=== PATIENT | male | born 1960 | race Caucasian/White ===

== ENCOUNTER 2018-07-06 19:42 | Observation (INO) | payer OTHER ==
[2018-07-06 23:24] LABS: ADD MAN DIFF? NO
[2018-07-06 23:28] LABS: WHITE BLOOD COUNT 8.5 10^3/ul (4.8-10.8)
[2018-07-06 23:28] LABS: BASOPHIL # 0.1 10^3/ul (0.0-0.1); BASOPHILS % 0.8 % (0.0-2.0); EOSINOPHILS # 0.2 10^3/ul (0.0-0.5); EOSINOPHILS % 2.6 % (0.0-7.0); HEMATOCRIT 34.8 % (42.0-52.0); HEMOGLOBIN 11.1 g/dl (14.0-18.0); LYMPHOCYTES # 1.6 10^3/ul (0.8-2.9); LYMPHOCYTES % 19.1 % (15.0-51.0); MEAN CORPUSCULAR HEMOGLOBIN 25.7 pg (29.0-33.0); MEAN CORPUSCULAR HGB CONC 31.9 g/dl (32.0-37.0); MEAN CORPUSCULAR VOLUME 80.6 fl (82.0-101.0); MEAN PLATELET VOLUME 10.2 fl (7.4-10.4); MONOCYTE # 0.4 10^3/ul (0.3-0.9); MONOCYTES % 4.1 % (0.0-11.0); NEUTROPHIL # 6.2 10^3/ul (1.6-7.5); NEUTROPHILS % 73.2 % (39.0-77.0); PLATELET COUNT 278 10^3/UL (140-415); RED BLOOD COUNT 4.32 10^6/ul (4.70-6.10)
[2018-07-06 23:49] LABS: ALANINE AMINOTRANSFERASE 12 IU/L (13-69); ALBUMIN 4.5 g/dl (3.3-4.9); ALBUMIN/GLOBULIN RATIO 1.07; ALKALINE PHOSPHATASE 56 IU/L (42-121); ANION GAP 16 (5-13); ASPARTATE AMINO TRANSFERASE 36 IU/L (15-46); BLOOD UREA NITROGEN 36 mg/dl (7-20); CARBON DIOXIDE 27 mmol/L (21-31); CHLORIDE 93 mmol/L (97-110); CREATININE 1.41 mg/dl (0.61-1.24); Estimated GFR 52 mL/min (>60); GLUCOSE 91 mg/dl (70-220); LIPASE 130 U/L (23-300); POTASSIUM 4.7 mmol/L (3.5-5.1); SODIUM 136 mmol/L (135-144); TOTAL PROTEIN 8.7 g/dl (6.1-8.1)
[2018-07-07] LABS: B-TYPE NATRIURETIC PEPTIDE 136 PG/ML (0-125); TROPONIN-I < 0.012 ng/ml (0.000-0.120)
[2018-07-07] MEDS ORDERED: NACL 0.9% 3 ML SYG IV (02:00)
[2018-07-07] MEDS ORDERED: ACETAMINOPHEN 325 MG TAB PO (02:00)
[2018-07-07] MEDS ORDERED: BISACODYL (EC) 5 MG TAB PO (02:00)
[2018-07-07] MEDS ORDERED: DOCUSATE SODIUM 100 MG CAP PO (02:00)
[2018-07-07] MEDS: morphine 2 MG INJ IV (02:09)
[2018-07-07] MEDS: AMLODIPINE 2.5 MG TAB PO (02:13)
[2018-07-07] MEDS: ASPIRIN 325 MG TAB PO (03:08)
[2018-07-07] MEDS: NITROGLYCERIN (SL) 0.4 MG TAB SL ×2 (03:11→05:40)
[2018-07-07] MEDS: ENOXAPARIN 100 MG/ML SYG SC (03:54)
[2018-07-07 05:22] LABS: HEMOGLOBIN A1C 5.4 % (0-5.9)
[2018-07-07] MEDS: morphine LIQ (10 MG/5 ML) CUP PO ×2 (06:39→10:05)
[2018-07-07] MEDS: SOD CHLORIDE 0.9% 500 ML IV (07:00)
[2018-07-07 07:43] LABS: ETHANOL < 10.0 mg/dl (0-0)
[2018-07-07 07:44] LABS: CHOLESTEROL 255 mg/dl (100-200); MAGNESIUM 1.9 mg/dl (1.7-2.5)
[2018-07-07 07:44] LABS: CHOL/HDL RATIO 4.9 RATIO; CREATINE KINASE 245 IU/L (23-200); HDL CHOLESTEROL 52 mg/dl (28-71); LDL CHOLESTEROL,CALCULATED 162 mg/dl; TRIGLYCERIDES 207 mg/dl (0-149)
[2018-07-07 07:56] LABS: CK INDEX 2.1; TROPONIN-I < 0.012 ng/ml (0.000-0.120)
[2018-07-07] MEDS: ASPIRIN 81 MG TAB PO (09:00)
[2018-07-07 11:55] LABS: CREATINE KINASE 251 IU/L (23-200)
[2018-07-07 12:07] LABS: TROPONIN-I < 0.012 ng/ml (0.000-0.120)
[2018-07-07 12:09] LABS: CK-MB 5.11 ng/ml (0.0-2.4)
[2018-07-07 13:14] LABS: FREE T3 1.77 pg/ml (2.77-5.27)
[2018-07-08 07:18] LABS: ALBUMIN 4.2 g/dl (3.3-4.9); ALKALINE PHOSPHATASE 48 IU/L (42-121); ANION GAP 13 (5-13); ASPARTATE AMINO TRANSFERASE 40 IU/L (15-46); BLOOD UREA NITROGEN 35 mg/dl (7-20); CALCIUM 9.7 mg/dl (8.4-10.2); CARBON DIOXIDE 23 mmol/L (21-31); CHLORIDE 97 mmol/L (97-110); CREATININE 1.17 mg/dl (0.61-1.24); Estimated GFR > 60 mL/min (>60); GLUCOSE 80 mg/dl (70-220); POTASSIUM 5.1 mmol/L (3.5-5.1); SODIUM 133 mmol/L (135-144)
[2018-07-08 07:25] LABS: ALANINE AMINOTRANSFERASE < 6 IU/L (13-69)
[2018-07-08] MEDS: RIVAROXABAN 15 MG TABLET PO (08:17)
[2018-07-08] MEDS: ASPIRIN 81 MG TAB PO (08:17)
[2018-07-08 10:20] LABS: ADD MAN DIFF? NO; BASOPHIL # 0.1 10^3/ul (0.0-0.1); EOSINOPHILS # 0.3 10^3/ul (0.0-0.5); EOSINOPHILS % 5.8 % (0.0-7.0); HEMATOCRIT 33.3 % (42.0-52.0); HEMOGLOBIN 10.6 g/dl (14.0-18.0); LYMPHOCYTES # 1.6 10^3/ul (0.8-2.9); MEAN CORPUSCULAR HEMOGLOBIN 25.6 pg (29.0-33.0); MEAN CORPUSCULAR HGB CONC 31.8 g/dl (32.0-37.0); MEAN CORPUSCULAR VOLUME 80.4 fl (82.0-101.0); MEAN PLATELET VOLUME 9.4 fl (7.4-10.4); MONOCYTE # 0.3 10^3/ul (0.3-0.9); MONOCYTES % 5.5 % (0.0-11.0); NEUTROPHIL # 3.5 10^3/ul (1.6-7.5); NEUTROPHILS % 60.4 % (39.0-77.0); PLATELET COUNT 259 10^3/UL (140-415); RED BLOOD COUNT 4.14 10^6/ul (4.70-6.10)
[2018-07-08 10:20] LABS: WHITE BLOOD COUNT 5.8 10^3/ul (4.8-10.8)
[2018-07-08] MEDS: LEVOTHYROXINE 112 MCG TAB PO (13:42)
[2018-07-08] MEDS: morphine LIQ (10 MG/5 ML) CUP PO (13:42)
== END 2018-07-08 15:45 | disposition home or self-care (01) ==
LOC: E/R 19:42 → TEL 07-07 01:21
DX: R07.9 Chest pain, unspecified (principal); I25.10 Atherosclerotic heart disease of native coronary artery without angina pectoris; Z95.1 Presence of aortocoronary bypass graft; Z86.73 Personal history of transient ischemic attack (TIA), and cerebral infarction without residual deficits; M62.82 Rhabdomyolysis; N28.9 Disorder of kidney and ureter, unspecified; E78.5 Hyperlipidemia, unspecified; E78.1 Pure hyperglyceridemia; E78.00 Pure hypercholesterolemia, unspecified; D50.9 Iron deficiency anemia, unspecified; Z59.0 Homelessness; F41.9 Anxiety disorder, unspecified; I82.502 Chronic embolism and thrombosis of unspecified deep veins of left lower extremity; G89.29 Other chronic pain; I69.351 Hemiplegia and hemiparesis following cerebral infarction affecting right dominant side
CPT/HCPCS: 36415; 71045; 80053; 80061; 80307; 82550; 82553; 83036; 83690; 83735; 83880; 84439; 84443; 84481; 84484; 85025; 85378; 93005; 93306; 93970; 97161; 97167; 99285-25; G0378